=== PATIENT | male | born 1985 | race Caucasian/White ===

== ENCOUNTER 2023-08-22 15:42 | Inpatient (IN) ==
--- NOTE | 2023-08-22 16:04 | ED Triage Note ---
Date of Service August 22, 2023 Provider in Triage Author: Chey Doyle History of Present Illness This patient was briefly evaluated while in triage. An abbreviated physical exam was performed. This patient is a 37-year-old Male who presents to the ED for evaluation of swelling and edema, cellulitis after a testosterone injection. He reports the pain is located to the left thigh where he performed an intramuscular injection. Physical Exam Initial orders for labs and / or imaging were placed and patient was placed in the waiting area until a bed is available. Please see further documentation for the full ED course. MDM / Impression Impression Impression: Cellulitis of left leg, Hematoma of leg
--- NOTE | 2023-08-22 17:03 | Emergency Department Note ---
History of Present Illness General Chief complaint: Swelling/Edema to Extremity Stated complaint: INJECTION LT THIGH, INJECTION SIGHT SWELLING/PAIN Time Seen by Provider: 08/22/23 16:49 History of Present Illness This is a 37-year-old male that presents to the emergency department via private vehicle with complaints of "injection left thigh, swelling/pain". The patient states this past he injected about 500 mg of testosterone into his left anterior thigh region. He has done this before and has had no issues over the past 4 months. He notes that since there has been a bit more discomfort at the injection site and Tuesday noticed more irritation. Then yesterday he did a cardio type workout and now today notes a lot of swelling and redness to the left anterior leg. He was were about infection therefore prompting arrival here today. Patient notes that he cleansed the injection site with rubbing alcohol prior to the injection. It is with clean needles. He notes that he has had the exact same testosterone before without issue. No hives. No trouble breathing or swallowing. Patient denies any pertinent past medical history. He notes history of boxer fracture surgery on his hand. He notes allergy to triple antibiotic ointment. No chest pain or shortness of breath. No fevers or chills. No current antibiotic use. Home Medications Medication Instructions Recorded Confirmed Type No Known Home Medications 08/22/23 08/22/23 History Allergies Allergy/AdvReac Type Severity Reaction Status Date / Time No Known Allergies Allergy Unknown UNKNOWN Unverified 08/22/23 16:40 Past Med/Surg History Medical History (Updated 08/22/23 @ 19:53 by TOM Powell) Tobacco use Diaphoresis Surgical History (Updated 08/22/23 @ 19:08 by TOM Powell) No pertinent past surgical history Social History (Updated 08/22/23 @ 19:08 by TOM Powell) Smoking Status: Never smoker Tobacco Type: E-cigarettes / Vaping Second Hand Exposure: No; Do You Dip or Chew Tobacco: No; Tobacco Cessation Education Requested by Patient: No Hx Alcohol Use: Yes Alcohol type: beer Hx Substance Use: No Preferred Language: Chinese Communication Ability: Effective Clock Mechanic Required: No Beliefs That Will Affect Care: None Current Living Situation: Alone and Spouse Other Information That Helps Us Care for You: No Feels Safe at Home: Yes Safety Concerns: Feels Safe At This Time Assistive Devices: None Review of Systems A total of 10 systems reviewed and were otherwise negative Physical Exam Vital Signs Vital Signs - 24 hr 08/22/23 16:01 Temperature 36.8 C Temperature Source Oral Pulse Rate 105 H Respiratory Rate 16 Respiratory Effort / Characteristics Non-Labored Respiratory Depth Normal Respiratory Pattern Regular Blood Pressure 183/94 H Blood Pressure Mean 123 Pulse Oximetry 97 Oxygen Delivery Method Room Air Sepsis Recent Fever Within 48 Hours No Sepsis New/Unexplained Change in Mental Status No Sepsis Action Taken by Nursing No Action Required VITAL SIGNS - Vital signs and nursing notes were reviewed. Hypertensive, tachycardic, otherwise stable. GENERAL -37-year-old male appearing his stated age who is in no acute distress. Communicates well with provider and answers questions appropriately. SKIN -there is a rather large area of diffuse erythema to the left anterior thigh that is outlined by a skin marking pen. There is a small amount of induration palpable to the central mid aspect with the patient notes the injection was placed. No crepitus. No fluctuance. HEAD - NC/AT. EYES - PERRL with EOMI bilaterally. Sclera anicteric. EARS - No deformities of external structures noted on gross examination bilaterally. NOSE - Midline and without cyanosis. MOUTH/OROPHARYNX - Without perioral cyanosis. NECK - Neck with FROM. No nuchal rigidity. LUNGS - Chest wall symmetric without accessory muscle use, intercostals retractions, or central cyanosis. Normal vesicular breath sounds CTA B/L. No wheezes, rales, or rhonchi appreciated. CARDIAC - RRR with S1/S2. No murmur, rubs, or gallops appreciated. EXTREMITIES - No clubbing or peripheral cyanosis. Mild TTP over the left anterior thigh. Skin as above. Left lower extremity appropriately perfused +5/5 strength noted in UE/LE bilaterally. NEUROLOGIC - Cranial nerves II through XII grossly intact. PSYCH - A&Ox3 and cooperates fully with examiner. Pt is very pleasant and interacts well with examiner. Course Administered Medications Discontinued Medications Cefepime HCl (Maxipime) 2,000 mg in 20 mls @ 5 mls/min IV NOW STA; Protocol Stop: 08/22/23 18:13 Last Admin: 08/22/23 19:37 Dose: 5 mls/min Documented By: DEBBI Vancomycin HCl 2,000 mg/ (Sodium Chloride) 540 mls @ 200 mls/hr IV NOW ONE Stop: 08/22/23 20:51 Last Infusion: 08/22/23 22:42 Dose: Infused Documented By: Admin: 08/22/23 19:39 Dose: 200 mls/hr Documented By: DEBBI Lorazepam (Lorazepam 0.5 Mg Tab) 0.5 mg PO NOW STA Stop: 08/22/23 23:04 Last Admin: 08/22/23 23:21 Dose: 0.5 mg Documented By: CARTER Medical Decision Making Laboratory Data 08/22/23 17:17 08/22/23 17:17 Lab Results 08/22/23 Range/Units 17:17 WBC 11.27 H (4.8-10.8) K/ul RBC 5.36 (4.70-6.10) M/uL Hgb 15.7 (14.0-18.0) g/dl Hct 46.6 (42.0-52.0) % MCV 86.9 (80.0-100.0) fL MCH 29.3 (25.0-34.0) pg MCHC 33.7 (32.0-36.0) g/dL RDW Std Deviation 44.4 (36.4-46.3) fL RDW Coeff of Samantha 13.7 (11.5-14.5) % Plt Count 270 (130-400) K/uL MPV 10.8 (9.4-12.4) fL Immature Gran % (Auto) 0.4 % Neut % (Auto) 78.2 % Lymph % (Auto) 11.6 % Walsh % (Auto) 7.1 % Eos % (Auto) 2.4 % Baso % (Auto) 0.3 % Neut # (Auto) 8.82 H (1.40-6.50) K/uL Lymph # (Auto) 1.31 (1.20-3.40) K/uL Walsh # (Auto) 0.80 H (0.11-0.59) K/uL Eos # (Auto) 0.27 (0.00-0.50) K/uL Baso # (Auto) 0.03 (0.00-0.20) K/uL Immature Gran # (Auto) 0.04 (0.01-0.20) K/uL PT 10.9 (9.0-12.0) Seconds INR 1.0 (0.9-1.1) APTT 31 (21-31) Seconds PTT Ratio 1.1 Sodium 135 L (136-145) mmol/L Potassium 3.5 (3.5-5.1) mmol/L Chloride 98 (98-107) mmol/L Carbon Dioxide 26 (21-32) mmol/L Anion Gap 11 (3-11) BUN 13 (6-23) mg/dl Creatinine 1.17 (0.6-1.4) mg/dl Est Cr Clr Drug Dosing 98.8 ml/min Est GFR ( Amer) 91.8 ml/min Est GFR (Non-Af Amer) 79.2 ml/min BUN/Creatinine Ratio 11.1 (10-20) Glucose 80 (70-99(Fasting)) mg/dl Lactate 0.9 (0.4-2.0) mmol/L Calcium 9.2 (8.6-10.3) mg/dl Total Bilirubin 0.6 (0.2-1.0) mg/dl AST 20 (13-39) U/L ALT 16 (7-52) U/L Alkaline Phosphatase 37 (34-104) U/L Total Protein 7.7 (6.0-8.3) gm/dl Albumin 4.5 (3.4-5.0) gm/dl Globulin 3.2 (2.5-4.0) gm/dl Albumin/Globulin Ratio 1.4 (0.9-2) Procalcitonin 0.33 (0-0.5) ng/ml Imaging Data Radiologist's Impression: Vascular Ultrasound 08/22/23 16:59 US extremity non-vascular ltd CLINICAL HISTORY: L anterior leg erythema, edema, at injection site TECHNIQUE: Real-time grayscale sonographic images of the left upper anterior thigh were obtained. Comparison: None available at the time of this dictation. FINDINGS/IMPRESSION: Localized complex area at the point of interest measures 5.8 x 1.0 x 2.5 cm, nonspecific but may represent a developing phlegmon versus hematoma. No drainable fluid collection. ACT 112: Negative or not required by law. Electronically signed by: Josue Tello M.D. 08/22/2023 5:55 PM MDM Narrative Patient was seen and evaluated as above in room D01. Review was performed of nursing notes and vital signs. After obtaining a thorough history and physical examination the above work up was performed. Patient presents to us today for evaluation of erythema to the left anterior thigh region. This is in the setting of injecting testosterone at the area this past . There is what is likely a hematoma at the site of the injection that is deep to the skin surface now with surrounding erythema. There is no fluctuance or crepitus. Options of care were discussed with the patient. IV access was established. Labs were drawn. Leukocytosis 11.27. No anemia. Coags are normal. Mild hyponatremia 135. No evidence of kidney or liver failure. Lactate is within normal range. Procalcitonin 0.33. Ultrasound results as above. There is a localized complex area at the point of interest measuring 5.8 x 1.0 x 2.5 cm. Nonspecific may represent a developing phlegmon versus hematoma. No drainable fluid collection. Clinically I suspect hematoma however and developing infectious process certainly is possible. I suspect overlying cellulitic change. Broad-spectrum antibiotics ordered. IV cefepime and IV vancomycin ordered. Given the size of this cellulitic infection I do recommend inpatient management for IV antibiotics. Case discussed with the hospitalist service. Please refer to further documentation regarding his stay. Patient amenable to plan of care. Case was discussed with the attending physician. GCS: 15 In the evaluation and treatment of this patient the following differential diagnoses were entertained: Cellulitis, abscess, necrotic tissue, retained foreign body, hematoma, among others Impression & Plan Cellulitis of left leg, Hematoma of leg Discharge Plan Visit Data Chief Complaint: Swelling/Edema to Extremity Stated Complaint: INJECTION LT THIGH, INJECTION SIGHT SWELLING/PAIN ED Provider: January Hart ED Midlevel Provider: Lul Dennis Discharge Problem: Cellulitis of left leg, Hematoma of leg Patient Disposition: Admitted As Inpatient Condition: Good Discharge Instructions Interventions: ED Discharge Assessment Last Done: 08/22/23 21:40
[2023-08-22 17:39] LABS: Basophils # (auto) 0.03 K/uL (0.00-0.20); Basophils % (auto) 0.3 %; Eosinophils # (auto) 0.27 K/uL (0.00-0.50); Eosinophils % (auto) 2.4 %; Hematocrit (blood only) 46.6 % (42.0-52.0); Hemoglobin 15.7 g/dl (14.0-18.0); Immature Granulocytes # (auto) 0.04 K/uL (0.01-0.20); Immature Granulocytes % (auto) 0.4 %; Lymphocytes # (auto) 1.31 K/uL (1.20-3.40); Lymphocytes % (auto) 11.6 %; Mean Corpuscular Hemoglobin 29.3 pg (25.0-34.0); Mean Corpuscular Hgb Conc 33.7 g/dL (32.0-36.0); Mean Corpuscular Volume 86.9 fL (80.0-100.0); Mean Platelet Volume 10.8 fL (9.4-12.4); Monocytes % (auto) 7.1 %; Neutrophils # (auto) 8.82 K/uL (1.40-6.50); Neutrophils % (auto) 78.2 %; Platelet Count 270 K/uL (130-400); RDW Coefficient of Variation 13.7 % (11.5-14.5); RDW Standard Deviation 44.4 fL (36.4-46.3); Red Blood Count 5.36 M/uL (4.70-6.10); White Blood Count 11.27 K/ul (4.8-10.8)
[2023-08-22 17:55] LABS: Albumin Globulin Ratio 1.4 (0.9-2); Albumin Level 4.5 gm/dl (3.4-5.0); BUN Creatinine Ratio 11.1 (10-20); Bilirubin,Total 0.6 mg/dl (0.2-1.0); Calcium 9.2 mg/dl (8.6-10.3); Creatinine Clr Calc Pharmacy 98.8 ml/min; Est GFR (African American) 91.8 ml/min; Est GFR (Non-African American) 79.2 ml/min; Globulin 3.2 gm/dl (2.5-4.0); Potassium 3.5 mmol/L (3.5-5.1); Total Protein 7.7 gm/dl (6.0-8.3)
--- NOTE | 2023-08-22 17:57 | Ultrasound Report ---
US extremity non-vascular ltd CLINICAL HISTORY: L anterior leg erythema, edema, at injection site TECHNIQUE: Real-time grayscale sonographic images of the left upper anterior thigh were obtained. Comparison: None available at the time of this dictation. FINDINGS/IMPRESSION: Localized complex area at the point of interest measures 5.8 x 1.0 x 2.5 cm, non specific but may represent a developing phlegmon versus hematoma. No drainable fluid collection. ACT 112: Negative or not required by law. Electronically signed by: Josue Tello M.D. 08/22/2023 5:55 PM
[2023-08-22 18:05] LABS: Partial Thromboplastin Ratio 1.1; Partial Thromboplastin Time 31 Seconds (21-31); Prothrombin Time 10.9 Seconds (9.0-12.0)
[2023-08-22] MEDS ORDERED: VANCOMYCIN CONSULT ACTIVE PRN ×2 (18:10→19:29)
[2023-08-22] MEDS ORDERED: MAGNESIUM HYDROXIDE SUSP 30 ML UDC PO PRN (19:01)
[2023-08-22] MEDS ORDERED: POLYETHYLENE (MIRALAX) 17 GM PACK PO PRN (19:01)
[2023-08-22] MEDS ORDERED: ACETAMINOPHEN 325 MG TAB PO PRN (19:01)
[2023-08-22] MEDS ORDERED: ALUMINUM/MAGNESIUM SUSP 30 ML UDC PO PRN (19:01)
[2023-08-22] MEDS ORDERED: ONDANSETRON INJ 2 MG/ML 2 ML VIAL IV PRN (19:01)
--- NOTE | 2023-08-22 19:03 | History & Physical Report ---
Date of Service August 22, 2023 Assessment & Plan (1) Hematoma of leg: (2) Cellulitis of left leg: (3) Tobacco use: Plan Mr. Gutierrez is a 37-year-old male who presented to the ED with swelling and pain on his left thigh. Patient states that this past he injected testosterone into his left anterior thigh. This is not the first time that he has used testosterone and is leg and reports no issues prior when he started using testosterone about 4 months ago. Since he noted increased discomfort at his injection site with worsening irritation since Tuesday. Yesterday he exercised and today reports worsening of his symptoms. He reportedly uses a new needle each time he injects and also cleans the site well. No other past medical history noted. Patient reportedly takes glycopyrrolate as needed for diaphoresis related to exercise. Mild leukocytosis 11.27; lactate negative LFTs negative, procalcitonin negative and otherwise all drawn labs unremarkable. Patient initially was hypertensive but has normalized. On room air and otherwise hemodynamically stable. Vascular Ultrasound indicates 5.8 X1.0X 2.5 cm questionable phlegmon versus hematoma without drainable fluid. In the ED patient was placed on cefepime plus vancomycin. Admit for treatment of left anterior thigh hematoma with IV antibiotics given mild leukocytosis. Will adjust based on blood culture results and MRSA screen. Cellulitis of left anterior thigh: Hematoma of left anterior thigh: Acute Leukocytosis 11.27 Lactate negative, procalcitonin negative Vascular ultrasound: Localized complex area at the point of interest measures 5.8 x 1.0 x 2.5 cm, nonspecific but may represent a developing phlegmon versus hematoma. No drainable fluid collection Blood cultures and MRSA screen pending Cefepime plus vancomycin administered in ED; adjust based on blood culture results Discontinue vancomycin if negative MRSA screen Tobacco Use: Chronic Vapes Smoking cessation recommended Disposition: PCP: Beatrice Clark PA-C CODE STATUS: Full code VTE prophylaxis Lovenox subcu I spent a total of 87 minutes coordinating, documenting, and providing care for this patient excluding time spent in the performance of separately billed services. All of the aforementioned completed while collaborating with the assigned attending physician for a full treatment plan. Please see their addendum for further details. History of Present Illness Chief Complaint: R thigh hematoma Primary Care Provider: Beatrice Clark PA-C Mr. Gutierrez is a 37-year-old male who presented to the ED with swelling and pain on his left thigh. Patient states that this past he injected testosterone into his left anterior thigh. This is not the first time that he has used testosterone and is leg and reports no issues prior when he started using testosterone about 4 months ago. Since he noted increased discomfort at his injection site with worsening irritation since Tuesday. Yesterday he exercised and today reports worsening of his symptoms. He reportedly uses a new needle each time he injects and also cleans the site well. No other past medical history noted. Patient reportedly takes glycopyrrolate as needed for diaphoresis related to exercise. Extensive conversation held with patient indicating the negatives regarding nonprescribed medications and concerns regarding such. Mild leukocytosis 11.27; lactate negative LFTs negative, procalcitonin negative and otherwise all drawn labs unremarkable. Patient initially was hypertensive but has normalized. On room air and otherwise hemodynamically stable. Vascular Ultrasound indicates 5.8 X1.0X 2.5 cm questionable phlegmon versus hematoma without drainable fluid. In the ED patient was placed on cefepime plus vancomycin. Patient reportedly vapes, social alcohol with approximately 1 drink per week, no other recreational drug use including medical marijuana. Patient denies headache, dizziness, chest pain, palpitations, shortness of breath, abdominal pain or tenderness, visual or auditory changes, urinary or bow el changes, recent falls or trauma. Patient will be admitted for treatment of left anterior thigh hematoma with IV antibiotics given mild leukocytosis. Will adjust based on blood culture results and MRSA screen. Do not suspect admission more than 1 to 2 days. Please see A/P for further details. Allergies Allergy/AdvReac Type Severity Reaction Status Date / Time No Known Allergies Allergy Unknown UNKNOWN Unverified 08/22/23 16:40 Home Medications Medication Instructions Recorded Confirmed Type No Known Home Medications 08/22/23 08/22/23 History Past Med/Surg History Medical History (Updated 08/22/23 @ 19:08 by TOM Powell) Tobacco use Diaphoresis Surgical History (Updated 08/22/23 @ 19:08 by TOM Powell) No pertinent past surgical history Social History (Updated 08/22/23 @ 19:08 by TOM Powell) Smoking Status: Current every day smoker Tobacco Type: E-cigarettes / Vaping Second Hand Exposure: No; Do You Dip or Chew Tobacco: No; Tobacco Cessation Education Requested by Patient: No Hx Alcohol Use: No Hx Substance Use: No Preferred Language: Danish Feels Safe at Home: Yes Review of Systems Review of Systems: Neuro: (-) Falls, trauma, slurred speech HEENT: (-) MILLS, dizziness, dysphagia, visual or auditory changes CV: (-) CP, palpitations, swelling Resp: (-) SOB GI: (-) appetite changes, N/V/D, bowel changes : (-) urinary changes Skin: (-) rashes Psych: (-) anxiety, depression Physical Exam Physical Exam: Neuro: AAOx4, PERRLA, no aphagia, memory changes, CNII-XII grossly intact HEENT: head normocephalic, moist mucus membranes CV: S1/S2, (-) M/G/R, (-) edema, cap refill < 3 seconds Resp: Lungs CTA in all duenas. On RA GI: Abdomen S/NT/ND, Ax4 bowel sounds, (-) CVA tenderness Musculoskeletal: 5/5 B/L UE strength, 5/5 B/L LE strength. No gait disturbance Skin: (-) rashes , (+) L anterior thigh diffuse erythema Small amount of induration noted anterior aspect of L thigh Psych: euthymic mood Results & Data Results & Data Vital Signs (Past 12 Hours) Vital Signs Temp Pulse Resp BP Pulse Ox O2 Del Method 08/22/23 16:01 36.8 C 105 H 16 183/94 H 97 Room Air Laboratory Results Short CBC 08/22/23 Range/Units 17:17 WBC 11.27 H (4.8-10.8) K/ul Hgb 15.7 (14.0-18.0) g/dl Hct 46.6 (42.0-52.0) % Plt Count 270 (130-400) K/uL BMP 08/22/23 17:17 Sodium 135 L Potassium 3.5 Chloride 98 Carbon Dioxide 26 BUN 13 Creatinine 1.17 Glucose 80 Calcium 9.2 Liver Function 08/22/23 Range/Units 17:17 Total Bilirubin 0.6 (0.2-1.0) mg/dl AST 20 (13-39) U/L ALT 16 (7-52) U/L Alkaline Phosphatase 37 (34-104) U/L Albumin 4.5 (3.4-5.0) gm/dl Diagnostic Findings Vascular Ultrasound 08/22/23 16:59 US extremity non-vascular ltd CLINICAL HISTORY: L anterior leg erythema, edema, at injection site TECHNIQUE: Real-time grayscale sonographic images of the left upper anterior thigh were obtained. Comparison: None available at the time of this dictation. FINDINGS/IMPRESSION: Localized complex area at the point of interest measures 5.8 x 1.0 x 2.5 cm, nonspecific but may represent a developing phlegmon versus hematoma. No drainable fluid collection. ACT 112: Negative or not required by law. Electronically signed by: Josue Tello M.D. 08/22/2023 5:55 PM Code Status & VTE Plan Code Status Full but in the event of cardiac respiratory or VTE Prophylaxis Plan VTE Prophylaxis will be ordered: Yes Supervising Physician Co-Signing Physician Notes Attending addendum: The patient was seen and examined in emergency room He has been complaining of pain in the left thigh anteriorly with some swelling since Tuesday Denies any fever and or chills On examination Lying in bed comfortably Hemodynamically stable with blood pressure on the upper side at 183/94 Chest-clear to auscultate bilaterally Heart-S1-S2, regular Abdomen-benign Extremities-left thigh is swollen anteriorly with redness and warmth with tenderness involving the area marked. 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
[2023-08-22] MEDS ORDERED: VANCOMYCIN HCL 1,500 MG in SODIUM CHLORIDE 0.9% 500 ML IV SCH (19:30)
[2023-08-22] MEDS ORDERED: ENOXAPARIN INJ 40 MG/0.4 ML SYR SQ SCH (19:30)
[2023-08-22] MEDS: CEFEPIME 2,000 MG/20 ML VIAL IV STA (19:37)
[2023-08-22] MEDS: VANCOMYCIN HCL 2,000 MG in SODIUM CHLORIDE 0.9% 500 ML IV ONE (19:39)
--- NOTE | 2023-08-22 20:43 | Pharmacy Report ---
Pharmacy PK ABX Note - Date of Service August 22, 2023 - Assessment and Plan Assessment 37 year old M receiving vancomycin and cefepime for treatment of suspected left leg cellulitis. Pertinent microbiologic data includes: Cultures pending, mild leukocytosis upon admission. Day # 1 of antimicrobial therapy. Plan Vancomycin * Loading dose: 2000 mg IV x 1 * Maintenance dose: 1250 mg IV every 12 hours * Regimen is predicted to achieve target AUC/PENNY of 400-600 mg/L.hr * Level to be ordered for later date if therapy continued. Pharmacy will continue to follow and will adjust dose/frequency as necessary. Thank you. Pharmacy has transitioned to AUC monitoring for vancomycin. AUC/PENNY is the preferred PK/PD target and is associated with decreased risk of nephrotoxicity compared to traditional trough targets.
[2023-08-22] MEDS: LORazepam 0.5 MG TAB PO STA (23:21)
--- OUTSIDE RECORDS SUMMARY | 2023-08-23 06:06 | External Medical Summary ---
Author Name Unknown Address Unknown Organization K01:[facility] – [place], [place] - [address] [facility] [id number] Laboratory Report Ordering Provider Test Date Status DANIEL BANGURA 03/17/2023 09:25:58 Final Observation Date Value Abnormality Reference (Units ) Status MYCODE SPECIMEN-SST 03/17/2023 09:25:58 Freezing of extracted DNA, whole blood and/or serum. Final Performing Location [facility] – [place], [place] - [address] [facility] [id number]
--- OUTSIDE RECORDS SUMMARY | 2023-08-23 06:06 | External Medical Summary | Summary of Care ---
Author Name Unknown Organization [facility] Address [address] [place] [address] Phone [phone] Care Team Providers Care Combustion Engineer Name Role Phone Bert Bennett PA-C Primary Care Provider +1- [phone] Encounter Details Date Type Department Care Team Description 03/21/2023 Orders Only Outcomes Research Department [address] [place] [address] Lety Negrete CHRA MyCode Research Other*[id number] Allergies No known active allergiesdocumented as of this encounter (statuses as of 03/21/2023) Medications Medication Sig Dispensed Refills Start Date End Date Status Glycopyrrolate 2 MG Oral Tablet (Robinul) TAKE ONE TAB BY MOUTH UP TO THREE TIMES DAILY 90 Tablet 0 01/31/2023 Active documented as of this encounter (statuses as of 03/21/2023) Active Problems Problem Noted Date Hyperhidrosis 07/03/2018 documented as of this encounter (statuses as of 03/21/2023) Resolved Problems Problem Noted Date Resolved Date NONE 07/03/2018 documented as of this encounter (statuses as of 03/21/2023) Immunizations Name Administration Dates Next Due Seasonal Influenza, Split, IIV3, With Preserve, Inj 04/02/2013 TDAP (age 10 and older)(Boostrix) 12/09/2016 documented as of this encounter Social History Tobacco Use Types Packs/Day Years Used Date Smoking Tobacco: Former Cigars Smokeless Tobacco: Current Snuff Alcohol Use Standard Drinks/Week Comments Yes 0 (1 standard drink = 0.6 oz pur e alcohol) social Sex Assigned at Date Recorded Not on file Job Start Date Occupation Industry Not on file Not on file Not on file documented as of this encounter Plan of Treatment Upcoming Encounters Date Type Specialty Care Team Description 05/30/2023 Office Visit Family Medicine José Miguel Zaman MD [address] [place] [address] 03/19/2024 Office Visit Internal Medicine Bert Bennett PA-C [address] [place] [facility] [place] [address] Scheduled Orders Name Type Priority Associated Diagnoses Orde r Schedule MYCODE SUBSEQUENT ADULT Lab Routine MyCode Research Other*[id number] Every 6 Months for 2 Occurrences starting 03/21/2023 until 04/09/2024 Health Maintenance Due Date Last Done Comments COVID-19 Vaccine (#1) 04/02/1986 Hepatitis B (3 of 3 - 3-dose series) 10/14/2000 08/19/2000, 06/10/2000 Influenza Vaccine (FLU shot) (#1) 2023 04/02/2013, 04/22/2007 Depression Screening 03/17/2024 03/17/2023 Diabetes Screening 03/17/2026 03/17/2023, 0 12/05/2020, 04/24/2020, Additional history exists DTaP,Tdap,and Td Vaccines (7 - Td or Tdap) 12/09/2026 12/09/2016, 06/10/2000, 11/10/1988, Additional history exists Hepatitis C Screening Completed 12/21/2022 GARDASIL-HPV IMMUNIZATION SERIES Aged Out No longer eligible based on patient's age to complete this topic MENINGOCOCCAL (MENACTRA/MENVEO) Aged Out No longer eligible based on patient's age to complete this topic Pneumococcal Vaccine: Pediatrics (0 to 5 Years) and At-Risk Patients (6 to 64 Years) Aged Out No longer eligible based on patient's age to complete this topic documented as of this encounter Medical Devices Not on filedocumented as of this encounter Visit Diagnoses Diagnosis MyCode Research Other*[id number] documented in this encounter Advance Directives Latest Code Status on File Code Status Date Activated Date Inactivated Comments Full Code 12/09/2020 8:19 AM 12/09/2020 2:04 PM This or jake reflects the patients wishes and were consensually agreed upon. Code Status History Code Status Date Activated Date Inactivated Comments Full Code 12/09/2020 6:29 AM 12/09/2020 8:19 AM This or jake reflects the patients wishes and were consensually agreed upon. Care Teams Combustion Engineer Relationship Specialty Start Date End Date Bert Bennett PA-C [address] [facility] [place] [address] PCP - General Physician [employer]mv Driver 03/08/23 documented as of this encounter
--- OUTSIDE RECORDS SUMMARY | 2023-08-23 06:06 | External Medical Summary | Summary of Care ---
Author Name Unknown Organization [facility] Address [address] [place] [address] Phone [phone] Care Team Providers Care Glue Jointer Operator Name Role Phone Bert Bennett PA-C Primary Care Provider +1- [phone] Encounter Details Date Type Department Care Team Description 03/18/2023 Orders Only General Internal Medicine [facility] [address] [facility] [place] [place] [address] Bert Bennett PA-C [address] [place] [address] Long-term current use of testosterone replacement therapy* Allergies No known active allergiesdocumented as of this encounter (statuses as of 03/18/2023) Medications Medication Sig Dispensed Refills Start Date End Date Status Glycopyrrolate 2 MG Oral Tablet (Robinul) TAKE ONE TAB BY MOUTH UP TO THREE TIMES DAILY 90 Tablet 0 01/31/2023 Active documented as of this encounter (statuses as of 03/18/2023) Active Problems Problem Noted Date Hyperhidrosis 07/03/2018 documented as of this encounter (statuses as of 03/18/2023) Resolved Problems Problem Noted Date Resolved Date NONE 07/03/2018 documented as of this encounter (statuses as of 03/18/2023) Immunizations Name Administration Dates Next Due Seasonal [...] Family Medicine José Miguel Zaman MD [address] [place] [address] 03/19/2024 Office Visit Internal Medicine Bert Bennett PA-C [address] [facility] [place] [address] Scheduled Orders Name Type Priority Associated Diagnoses Orde r Schedule CBC Lab Routine Long-term current use of testosterone replacement therapy Expected: 09/16/2023 (Approximate), Expires: 03/17/2024 Health Maintenance Due Date Last Done Comments [...] as of this encounter Visit Diagnoses Diagnosis Long-term current use of testosterone replacement therapy- Primary documented in this encounter Advance Directives Latest [...] and were consensually agreed upon. Care Teams Glue Jointer Operator Relationship Specialty Start Date End Date Bert Bennett PA-C [address] [facility] [place] [address] PCP - General Physician Force Dispatcher 03/08/23 documented as of this encounter
--- OUTSIDE RECORDS SUMMARY | 2023-08-23 06:06 | External Medical Summary | Summary of Care ---
Author Name Unknown Organization [facility] Address [address] [place] [address] Phone [phone] Care Team Providers Care Mail Caller Name Role Phone Bert Bennett PA-C Primary Care Provider +1- [phone] Reason for Visit * Reason Comments NEW PATIENT Establish care with new PCP. No concerns or issues at this time. Encounter Details Date Type Department Care Team Description 03/17/2023 Office Visit General Internal Medicine [facility] [address] [place] [address] Bert Bennett PA-C [address] [place] [address] Hyperhidrosis*; Lipid screening; Screening for diabetes mellitus; Therapeutic drug monitoring Allergies No known active allergiesdocumented as of this encounter (statuses as of 03/17/2023) Medications Medication Sig Dispensed Refills Start Date End Date Status Glycopyrrolate 2 MG Oral Tablet (Robinul) TAKE ONE TAB BY MOUTH UP TO THREE TIMES DAILY 90 Tablet 0 01/31/2023 Active Meloxicam 15 MG Oral Tablet Take 1 Tab by mouth daily. 30 Tab 1 09/17/2020 03/17/2023 Discontinued Ondansetron HCl 4 MG Oral Tablet (Zofran) Take 1 Tab by mouth every 8 hours as needed for Nausea. 20 Tab 0 12/09/2020 03/17/2023 Discontinued Tamsulosin HCl 0.4 MG Oral Capsule (Flomax) Take 1 Cap by mouth daily. 30 Cap 0 12/09/2020 03/17/2023 Discontinued Ketorolac Tromethamine 10 MG Oral Tablet Take 10 mg by mouth every 6 hours as needed for Pain, Mild. 20 Tab 0 12/15/2020 03/17/2023 Discontinued documented as of this encounter (statuses as of 03/17/2023) Active Problems Problem Noted Date Hyperhidrosis 07/03/2018 documented as of this encounter (statuses as of 03/17/2023) Resolved Problems Problem Noted Date Resolved Date NONE 07/03/2018 documented as of this encounter (statuses as of 03/17/2023) Immunizations Name Administration Dates Next Due Seasonal [...] on file documented as of this encounter Last Filed Vital Signs Vital Sign Reading Time Taken Comments Blood Pressure 120/76 03/17/2023 9:05 AM EDT Pulse 83 03/17/2023 9:05 AM EDT Temperature 36.2 C (97.1 F) 03/17/2023 9:05 AM ED T Respiratory Rate - - Oxygen Saturation 99% 03/17/2023 9:05 AM EDT Inhaled Oxygen Concentration - - Weight 85 kg (187 lb 4.8 oz) 03/17/2023 9:05 AM EDT Height 174.6 cm (5' 8.74") 03/17/2023 9:05 AM ED T Body Mass Index 27.87 03/17/2023 9:05 AM EDT documented in this encounter Progress Notes * Bert Bennett PA-C - 03/17/2023 9:07 AM EDT Subjective: Jaison Gutierrez is a 37 year old male. Chief Complaint Patient presents with NEW PATIENT Establish care with new PCP. No concerns or issues at this time. HPI: 37 y/o male with hyperhidrosis presents to establish care with our office. Hs hyperhidrosis. Using robinul. Taking 75 mg of testosterone twice daily. Not prescribed. Discussed risk of TRT, especially in setting that it is not indicated. PMH: Patient Active Problem List Diagnosis Code Hyperhidrosis R61 Current Outpatient Medications Medication Sig Dispense Refill Glycopyrrolate 2 MG Oral Tablet (Robinul) TAKE ONE TAB BY MOUTH UP TO THREE TIMES DAILY 90 Tablet 0 No current facility-administered medications for this visit. Past Medical History: Diagnosis Date Hyperhidrosis Kidney stone Past Surgical History: Procedure Laterality Date CARPBN FX W/WOM EA BONE Right boxer fracture CIRCUMCISION W/CLAMP,DORSAL BLOCK, FRAGMENT KIDNEY STONE BY SHOCK WAVE Left 12/09/2020 LITHOTRIPSY EXTRACORPOREAL SHOCK WAVE performed by Mahin Marie MD at OR [facility] Review of patient's allergies indicates: No Known Allergies Family History Problem Relation Age of Onset Hypertension Father No Past Hx Mother No Past Hx Brother No Past Hx Brother Family Status Relation Status Fa (Not Specified) Mo (Not Specified) Bro (Not Specified) Bro (Not Specified) Social History Socioeconomic History Marital status: Single Spouse name: Not on file Number of children: 2 Years of education: 12 Highest education level: Not on file Occupational History 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 Tobacco Use Smoking status: Former Types: Cigars Smokeless tobacco: Current Types: Snuff Vaping Use Vaping Use: Every day Substances: Nicotine, Flavoring Devices: Disposable Substance and Sexual Activity Alcohol use: Yes Comment: social Drug use: No Sexual activity: Yes Partners: Female Other Topics Concern Not on file Social History Narrative Not on file Social Determinants of Health Financial Resource Strain: Not on file Food Insecurity: Not on file Transportation Needs: Not on file Physical Activity: Not on file Stress: Not on file Social Connections: Not on file Intimate Partner Violence: Not on file Housing Stability: Not on file All other review of systems reviewed and negative other than mentioned in HPI. Objective: BP 120/76 | Pulse 83 | Temp 36.2 C (97.1 F) | Ht 1.746 m (5' 8.74") | Wt 85 kg (187 lb 4.8 oz) | SpO2 99% | BMI 27.87 kg/m | BSA 2.03 m Physical Exam Constitutional: General: He is not in acute distress. Appearance: Normal appearance. He is normal weight. He is not ill-appearing or toxic-appearing. HENT: Head: Normocephalic and atraumatic. Right Ear: Tympanic membrane normal. Left Ear: Tympanic membrane normal. Mouth/Throat: Mouth: Mucous membranes are moist. Pharynx: Oropharynx is clear. No oropharyngeal exudate or posterior oropharyngeal erythema. Eyes: Extraocular Movements: Extraocular movements intact. Conjunctiva/sclera: Conjunctivae normal. Pupils: Pupils are equal, round, and reactive to light. Cardiovascular: Rate and Rhythm: Normal rate and regular rhythm. Heart sounds: Normal heart sounds. No murmur heard. No friction rub. No gallop. Pulmonary: Effort: Pulmonary effort is normal. Breath sounds: Normal breath sounds. No wheezing, rhonchi or rales. Abdominal: General: Bowel sounds are normal. There is no distension. Palpations: Abdomen is soft. There is no mass. Tenderness: There is no abdominal tenderness. There is no guarding or rebound. Musculoskeletal: General: Normal range of motion. Neurological: General: No focal deficit present. Mental Status: He is alert. Psychiatric: Mood and Affect: Mood normal. Thought Content: Thought content normal. ASSESSMENT: Hyperhidrosis (Primary) Continue Robinul Lipid screening - LIPID PANEL WITH DIRECT LDL IF TG IS HIGH; Future; Expected date: 03/17/2023 Screening for diabetes mellitus - GLUCOSE, FASTING PLASMA; Future; Expected date: 03/17/2023 Therapeutic drug monitoring - CBC WITH WBC DIFFERENTIAL; Future; Expected date: 03/17/2023 - TESTOSTERONE: TOTAL, FREE AND BIOAVAILABLE; Future; Expected date: 03/17/2023 Recommend checking above given his testosterone use. Follow Up: Return in about 1 year (around 03/17/2024), or if symptoms worsen or fail to improve. Bert Bennett PA-C documented in this encounter Nursing Notes * Emelina Madrigal LPN - 03/17/2023 9:03 AM EDT Chief Complaint Patient presents with NEW PATIENT Establish care with new PCP. No concerns or issues at this time. documented in this encounter Plan of Treatment Upcoming Encounters Date Type Specialty Care Team Description 05/30/2023 Office Visit Family Medicine José Miguel Zaman MD [address] [place] [address] 03/19/2024 Office Visit Internal Medicine Bert Bennett PA-C [address] [place] [address] Pending Results Name Type Priority Associated Diagnoses Date /Time CBC WITH WBC DIFFERENTIAL Lab Routine Therapeutic drug monitoring 03/17/2023 9:25 AM EDT TESTOSTERONE: TOTAL, FREE AND BIOAVAILABLE Lab Routine Therapeutic drug monitoring 03/17/2023 9:25 AM EDT LIPID PANEL WITH DIRECT LDL IF TG IS HIGH Lab Routine Lipid screening 03/17/2023 9:25 AM EDT GLUCOSE, FASTING PLASMA Lab Routine Screening for diabetes mellitus 03/17/2023 9:25 AM EDT Scheduled Orders Name Type Priority Associated Diagnoses Orde r Schedule CBC WITH WBC DIFFERENTIAL Lab Routine Therapeutic drug monitoring Expected: 03/17/2023 (Approximate), Expires: 03/17/2024 TESTOSTERONE: TOTAL, FREE AND BIOAVAILABLE Lab Routine Therapeutic drug monitoring Expected: 03/17/2023 (Approximate), Expires: 03/16/2024 LIPID PANEL WITH DIRECT LDL IF TG IS HIGH Lab Routine Lipid screening Expected: 03/17/2023, Expires: 03/17/2024 GLUCOSE, FASTING PLASMA Lab Routine Screening for diabetes mellitus Expected: 03/17/2023 (Approximate), Expires: 03/16/2024 Health Maintenance Due Date Last Done Comments COVID-19 Vaccine (#1) 04/02/1986 Hepatitis B (3 of 3 - 3-dose series) 10/14/2000 08/19/2000, 06/10/2000 Depression Screening 07/03/2019 07/03/2018 Influenza Vaccine (FLU shot) (#1) 2023 04/02/2013, 04/22/2007 Diabetes Screening 12/06/2023 12/05/2020, 1 , 02/01/2013 DTaP,Tdap,and Td Vaccines (7 - Td or [...] as of this encounter Visit Diagnoses Diagnosis Hyperhidrosis- Primary Primary focal hyperhidrosis Lipid screening Screening for lipoid disorders Screening for diabetes mellitus Therapeutic drug monitoring Encounter for therapeutic drug monitoring documented in this encounter Advance Directives Latest Code Status on File Code Status Date Activated Date Inactivated Comments Full Code 12/09/2020 8:19 AM 12/09/2020 2:04 PM This or jake reflects the patients wishes and were consensually agreed upon. Code Status History Code Status Date Activated Date Inactivated Comments Full Code 12/09/2020 6:29 AM 12/09/2020 8:19 AM This or jaek reflects the patients wishes and were consensually agreed upon. Care Teams Mail Caller Relationship Specialty Start Date End Date Bert Bennett PA-C [address] [facility] [place] [address] PCP - General Physician Aviation [employer] 03/08/23 documented as of this encounter
--- OUTSIDE RECORDS SUMMARY | 2023-08-23 06:06 | External Medical Summary | Summary of Care ---
Author Name Unknown Organization [facility] Address [address] [place] [address] Phone [phone] Care Team Providers Care Medical Scientific Officer Name Role Phone Bert Bennett PA-C Primary Care Provider +1- [phone] Reason for Visit * Reason Comments Outpatient Testing Encounter Details Date Type Department Care Team Description 03/17/2023 Laboratory Laboratory [facility] [address] [place] [address] [facility] [address] [facility] [place] [address] [facility] Other*[id number]; Therapeutic drug monitoring; Lipid screening; Screening for diabetes mellitus Allergies No known active allergiesdocumented as of [...] Family Medicine José Miguel Zaman MD [address] [place] [address] 03/19/2024 Office Visit Internal Medicine Bert Bennett PA-C [address] [facility] [address] Pending Results Name Type Priority Associated Diagnoses Date /Time MYCODE INITIAL ADULT Lab Routine MyCode Research Other*[id number] 03/17/2023 9:25 AM EDT CBC WITH WBC DIFFERENTIAL Lab Routine Therapeutic drug monitoring 03/17/2023 9:25 AM EDT TESTOSTERONE: TOTAL, FREE AND BIOAVAILABLE Lab Routine Therapeutic drug monitoring 03/17/2023 9:25 AM EDT LIPID PANEL WITH DIRECT LDL IF TG IS HIGH Lab Routine Lipid screening 03/17/2023 9:25 AM EDT GLUCOSE, FASTING PLASMA Lab Routine Screening for diabetes mellitus 03/17/2023 9:25 AM EDT MYCODE INITIAL ADULT-PINK Lab Routine MyCode Research Other*[id number] 03/17/2023 9:25 AM EDT MYCODE SST1 Lab Routine MyCode Research Other*[id number] 03/17/2023 9:25 AM EDT MYCODE SST2 Lab Routine MyCode Research Other*[id number] 03/17/2023 9:25 AM EDT CBC Lab Routine Therapeutic drug monitoring 03/17/2023 9:25 AM EDT DIFFERENTIAL, AUTOMATED Lab Routine Therapeutic drug monitoring 03/17/2023 9:25 AM EDT Health Maintenance Due Date Last Done Comments [...] this encounter Visit Diagnoses Diagnosis MyCode Research Other*[id number] Therapeutic drug monitoring Encounter for therapeutic drug monitoring Lipid screening Screening for lipoid disorders Screening for diabetes mellitus documented in this encounter Advance Directives Latest [...] and were consensually agreed upon. Care Teams Medical Scientific Officer Relationship Specialty Start Date End Date Bert Bennett PA-C [address] [facility] [place], [place] [address] PCP - General Physician Sat Instructor 03/08/23 documented as of this encounter
--- OUTSIDE RECORDS SUMMARY | 2023-08-23 06:07 | External Medical Summary ---
Author Name Unknown Address Unknown Organization [id number][place] [place] [facility] [place] [address] Laboratory Report Ordering Provider Test Date Status TRENT JENKINS 03/17/2023 09:25:58 Final Observation Date Value Abnormality Reference (Units ) Status Albumin 03/17/2023 09:25:58 4.8 3.8-5.0 (g/dL) Final Sex Hormone Binding Globulin 03/17/2023 09:25:58 29 12-91 (nmol/L) Final Testosterone [Mass/volume] in Serum or Plasma 03/17/2023 09:25:58 874.4 Above high normal 249.0-836.0 (ng/dL) Final Free Testosterone, calculated 03/17/2023 09:25:58 203.0 Above high normal 35.0-130.0 (pg/mL) Final Bioavailable Testosterone, calculated 03/17/2023 09:25:58 528.7 Above high normal 79.0-335.0 (ng/dL) Final Performing Location [facility] [place] [facility] [place] [address]
--- OUTSIDE RECORDS SUMMARY | 2023-08-23 06:07 | External Medical Summary ---
Author Name Unknown Address Unknown Organization [id number][place] [place] [address] [facility] [address] Laboratory Report Ordering Provider Test Date Status TRENT JENKINS 03/17/2023 09:25:58 Final Observation Date Value Abnormality Reference (Units ) Status Triglyceride 03/17/2023 09:25:58 74 <=174 ( mg/dL) Final Triglyceride Reference Range s (mg/dL):
<150 Acceptable
150-174 Borderline high
175-499 High
>=500 Very high Cholesterol 03/17/2023 09:25:58 207 Above high normal <200 (mg/dL) Final Total Cholesterol Reference Ranges (mg/dL):
<200 Desirable
200-239 Borderline high
>=240 High HDL 03/17/2023 09:25:58 65 >39 (mg/dL ) Final HDL Cholesterol Reference Ra nges (mg/dL):
>=60 High (Desirable)
<50 Low (Undesirable) For Females
<40 Low (Undesirable) For Males NON-HDL CHOLESTEROL 03/17/2023 09:25:58 142 <=159 (mg/dL) Final Non-HDL Cholesterol Referenc e Range (mg/dL):
<100 Target level for high risk ASCVD patient
<130 Optimal for general population
130-159 Near optimal for general population
160-189 Borderline High
190-219 High
>=220 Very High LDL, (calculated) 03/17/2023 09:25:58 127 <= 129 (mg/dL) Final LDL Cholesterol Reference Ra nges (mg/dL):
<70 Target level for high risk ASCVD patient
<100 Optimal for general population
100-129 Near optimal for general population
130-159 Borderline high
160-189 High
>=190 Very high Performing Location [facility] [facility] [place] [address] [place] [address]
--- OUTSIDE RECORDS SUMMARY | 2023-08-23 06:07 | External Medical Summary | Summary of Care ---
Author Name Unknown Organization [facility] Address [address] [place] [address] Phone [phone] Care Team Providers Care Change Room Attendant Name Role Phone Bert Bennett PA-C Primary Care Provider [phone] Reason for Visit * Reason Comments eRx-Medication Refill Encounter Details Date Type Department Care Team Description 02/27/[address] [id number] José Miguel Brewster MD [address] [place] [phone] Allergies No known active allergiesdocumented as of this encounter (statuses as of 03/08/2023) Medications Medication Sig Dispensed Refills Start Date End Date Status Meloxicam 15 MG Oral Tablet Take 1 Tab by mouth daily. 30 Tab 1 09/17/2020 Active Ondansetron HCl 4 MG Oral Tablet (Zofran) Take 1 Tab by mouth every 8 hours as needed for Nausea. 20 Tab 0 12/09/2020 Active Tamsulosin HCl 0.4 MG Oral Capsule (Flomax) Take 1 Cap by mouth daily. 30 Cap 0 12/09/2020 Active Ketorolac Tromethamine 10 MG Oral Tablet Take 10 mg by mouth every 6 hours as needed for Pain, Mild. 20 Tab 0 12/15/2020 Active Glycopyrrolate 2 MG Oral Tablet (Robinul) TAKE ONE TAB BY MOUTH UP TO THREE TIMES DAILY 90 Tablet 0 01/31/2023 Active documented as of this encounter (statuses as of 03/08/2023) Active Problems Problem Noted Date Hyperhidrosis 07/03/2018 documented as of this encounter (statuses as of 03/08/2023) Resolved Problems Problem Noted Date Resolved Date NONE 07/03/2018 documented as of this encounter (statuses as of 03/08/2023) Immunizations Name Administration Dates Next Due Seasonal Influenza, Split, IIV3, With Preserve, Inj 04/02/2013 TDAP (age 10 and older)(Boostrix) 12/09/2016 documented as of this encounter Social History Tobacco Use Types Packs/Day Years Used Date Smoking Tobacco: Former Cigars Smokeless Tobacco: Current Snuff Alcohol Use Standard Drinks/Week Comments Not Currently 0 (1 standard drink = 0.6 oz pur e alcohol) Sex Assigned at Date Recorded Not on file Job Start Date Occupation Industry Not on file Not on file Not on file documented as of this encounter Miscellaneous Notes * Telephone Encounter - Mitzi Valdez - 03/08/2023 8:57 AM EDT Patient returned call and scheduled with provider in his new location. Updated PCP * Telephone Encounter - Kandis Marie - 03/01/2023 5:52 PM EDT Called pt can't lmom asking for mail box number * Telephone Encounter - Carolina Moe LPN - 03/01/2023 5:43 PM EDT Please call patient and help schedule an appt. We are unable to refill any meds at this time since he has not been seen since 2019. * Telephone Encounter - José Miguel Brewster MD - 03/01/2023 4:09 PM EDTRefused Prescriptions: Disp Refills Glycopyrrolate 2 MG Oral Tablet (Robinul) 90 Tab*3 Sig: TAKE 1 TABLET BY MOUTH UP TO 3 TIMES DAILY Refused By: JOSÉ MIGUEL BREWSTER Reason for Refusal: Other (comment below) * Telephone Encounter - José Miguel Brewster MD - 03/01/2023 4:09 PM EDT Patient not seen since 2019 He needs to be seen for med review Please call in the prescription to patients pharmacy and close encounter. Refused Prescriptions: Disp Refills Glycopyrrolate 2 MG Oral Tablet (Robinul) 90 Tab*3 Sig: TAKE 1 TABLET BY MOUTH UP TO 3 TIMES DAILY Refused By: JOSÉ MIGUEL BREWSTER Reason for Refusal: Other (comment below) * Telephone Encounter - Aurelio Trejo [facility] - 02/28/2023 11:23 AM EDT Telepharmacy not authorized to fill for this medication per protocol. Please approve if appropriate. Pending Prescriptions: Disp Refills Glycopyrrolate 2 MG Oral Tablet (Robinul) 90 Tab*3 Sig: TAKE 1 TABLET BY MOUTH UP TO 3 TIMES DAILY Visit date not found (in office), Visit date not found (telemedicine) 05/30/2023 If no future appointments scheduled, and last appointment is greater than a year ago, please schedule patient for a follow-up appointment Last date the medication was ordered: Pharmacy: [id number] Is this request for a controlled substance? No Urine Drug Screen:No results found for this or any previous visit. Patient Phone Numbers Labs: Lab Results Component Value Date/Time CREAT 1.2 12/05/2020 02:01 PM CREAT 1.2 04/24/2020 08:20 AM POTASSIUM 4.4 12/05/2020 02:01 PM POTASSIUM 5.0 04/24/2020 08:20 AM TSH 0.88 02/01/2013 01:00 PM ALT 22 04/24/2020 08:20 AM * Telephone Encounter - Aurelio Trejo RP - 02/28/2023 11:23 AM EDT Pending Prescriptions: Disp Refills Glycopyrrolate 2 MG Oral Tablet (Robinul) 90 Tab*3 Sig: TAKE 1 TABLET BY MOUTH UP TO 3 TIMES DAILY documented in this encounter Plan of Treatment Upcoming Encounters Date Type Specialty Care Team Description 03/17/2023 Office Visit Internal Medicine Bert Bennett PA-C [address] [place] [phone] 05/30/2023 Office Visit Family Medicine José Miguel Brewster MD [address] [place] [phone] Health Maintenance Due Date Last Done Comments COVID-19 Vaccine (#1) 04/02/1986 Hepatitis B (3 of 3 - 3-dose series) 10/14/2000 08/19/2000, 06/10/2000 Depression Screening, Annual for Pts 12 and Over 07/03/2019 07/03/2018 Influenza Vaccine (FLU shot) (#1) 2023 04/02/2013 DTaP,Tdap,and Td Vaccines (7 - Td or [...] Not on filedocumented as of this encounter Advance Directives Latest Code Status [...] and were consensually agreed upon. Care Teams Change Room Attendant Relationship Specialty Start Date End Date Bert Bennett PA-C [address] [facility] [place] [address] PCP - General Physician Residential Green Building Designer 03/08/23 documented as of this encounter
--- OUTSIDE RECORDS SUMMARY | 2023-08-23 06:07 | External Medical Summary ---
Author Name Unknown Address Unknown Organization [id number]:[facility] [place] [address] Laboratory Report Ordering Provider Test Date Status TRENT JENKINS 03/17/2023 09:25:58 Final Based on guidelines from [place] [employer]:
70-99 mg/dL Normal
100-125 mg/dL Pre-diabetes
>125 mg/dL Diabetes, diagnosis requires two abnormal diabetes diagnostic test results Observation Date Value Abnormality Reference (Units ) Status Fasting glucose [Moles/volume] in Serum or Plasma 03/17/2023 09:25:58 94 70-99 (mg/dL) Final Performing Location [facility] [place] [address]
--- OUTSIDE RECORDS SUMMARY | 2023-08-23 06:07 | External Medical Summary ---
Author Name Unknown Address Unknown Organization K09:[facility] [place] [address] Laboratory Report Ordering Provider Test Date Status TRENT JENKINS 03/17/2023 09:25:58 Final Observation Date Value Abnormality Reference (Units ) Status SYNC LEUKOCYTES IN BLOOD BY AUTOMATED COUNT 03/17/2023 09:25:58 7.22 4.00-10.80 (K/uL) Final Segs 03/17/2023 09:25:58 61.9 40.0-75.0 (%) Final Lymphs % 03/17/2023 09:25:58 27.4 18.0-42.0 (%) Final Monos 03/17/2023 09:25:58 8.9 1.0-11.0 (%) Final Eosinophils 03/17/2023 09:25:58 1.5 0.0-6.0 (%) Final Basos 03/17/2023 09:25:58 0.3 0.0-2.0 (%) Final Absolute Segs 03/17/2023 09:25:58 4.47 1.80-7.70 (K/uL) Final Lymphs, absolute 03/17/2023 09:25:58 1.98 1.00-4.80 (K/ul) Final Monos, Abs 03/17/2023 09:25:58 0.64 0.00-1.10 (K/uL) Final Eos, Abs 03/17/2023 09:25:58 0.11 0.00-0.70 (K/uL) Final Basos, Abs 03/17/2023 09:25:58 0.02 0.00-0.20 (K/uL) Final Performing Location [facility] [place] [address]
--- OUTSIDE RECORDS SUMMARY | 2023-08-23 06:07 | External Medical Summary ---
Author Name Unknown Address Unknown Organization K09:[facility] [place] [address] Laboratory Report Ordering Provider Test Date Status TRENT JENKINS 03/17/2023 09:25:58 Final Observation Date Value Abnormality Reference (Units ) Status WBC, Total 03/17/2023 09:25:58 7.22 4.00-10.8 0 (K/uL) Final RBC 03/17/2023 09:25:58 5.78 4.50-5.25 (M/uL) Final Hemoglobin 03/17/2023 09:25:58 16.6 14.0-16.8 (g/dL) Final HCT 03/17/2023 09:25:58 49.6 Above high normal 40 .0-48.4 (%) Final MCV 03/17/2023 09:25:58 85.8 82.0-99.5 (fL) Final MCH 03/17/2023 09:25:58 28.7 27.0-34.0 (pg) Final MCHC 03/17/2023 09:25:58 33.5 32.0-36.0 (g/dL) Final RDW 03/17/2023 09:25:58 14.8 11.5-15.5 (%) Final Platelets 03/17/2023 09:25:58 248 140-400 (K /uL) Final MPV 03/17/2023 09:25:58 10.8 6.6-11.1 ( fL) Final Performing Location [facility] [place] [address]
--- OUTSIDE RECORDS SUMMARY | 2023-08-23 06:07 | External Medical Summary ---
Author Name Unknown Address Unknown Organization K01:[facility] - [address] [facility] [place] [address] Laboratory Report Ordering Provider Test Date Status DANEIL BANGURA 03/17/2023 09:25:58 Final Observation Date Value Abnormality Reference (Units ) Status MYCODE SPECIMEN-SST 03/17/2023 09:25:58 Freezing of extracted DNA, whole blood and/or serum. Final Performing Location [facility] - [address] [place] [address]
--- OUTSIDE RECORDS SUMMARY | 2023-08-23 06:07 | External Medical Summary ---
Author Name Unknown Address Unknown Organization K01:[facility] - [address] [place] [address] Laboratory Report Ordering Provider Test Date Status DANIEL BANGURA 03/17/2023 09:25:58 Final Observation Date Value Abnormality Reference (Units ) Status MYCODE SPECIMEN-LAV 03/17/2023 09:25:58 Freezing of extracted DNA, whole blood and/or serum. Final Performing Location [facility] [address] [facility] [address]
[2023-08-23 06:39] LABS: Hematocrit (blood only) 46.3 % (42.0-52.0); Hemoglobin 15.4 g/dl (14.0-18.0); Mean Corpuscular Hemoglobin 28.9 pg (25.0-34.0); Mean Corpuscular Hgb Conc 33.3 g/dL (32.0-36.0); Mean Platelet Volume 10.6 fL (9.4-12.4); Platelet Count 284 K/uL (130-400); RDW Coefficient of Variation 13.8 % (11.5-14.5); RDW Standard Deviation 44.5 fL (36.4-46.3); Red Blood Count 5.32 M/uL (4.70-6.10); White Blood Count 11.42 K/ul (4.8-10.8)
[2023-08-23 07:08] LABS: Albumin Globulin Ratio 1.4 (0.9-2); Albumin Level 4.1 gm/dl (3.4-5.0); BUN Creatinine Ratio 10.2 (10-20); Bilirubin,Total 0.4 mg/dl (0.2-1.0); Calcium 8.9 mg/dl (8.6-10.3); Creatinine Clr Calc Pharmacy 90.3 ml/min; Est GFR (African American) 82.3 ml/min; Globulin 2.9 gm/dl (2.5-4.0); Magnesium 2.4 mg/dl (1.7-2.4); Phosphorus 3.2 mg/dl (2.5-4.9); Potassium 4.2 mmol/L (3.5-5.1)
[2023-08-23] MEDS ORDERED: cefTRIAXone SODIUM 1,000 MG in DEXTROSE 5 % MINI-B 50 ML IV SCH (08:00)
[2023-08-23] MEDS: VANCOMYCIN HCL 1,250 MG in SODIUM CHLORIDE 0.9% 250 ML IV SCH (08:22)
[2023-08-23] MEDS: CEFEPIME 2,000 MG in SYRINGE 0 ML IV SCH (08:22)
[2023-08-23] MEDS: DOXYCYCLINE HYCLATE 100 MG CAP PO SCH (09:40)
[2023-08-23] MEDS: cefTRIAXone SODIUM 2,000 MG in DEXTROSE 5 % MINI-B 50 ML IV SCH (09:40)
[2023-08-23] MEDS: LORATADINE 10 MG TAB PO SCH (10:33)
--- NOTE | 2023-08-23 12:28 | Hospitalist Progress Note ---
Date of Service August 23, 2023 Assessment & Plan (1) Hematoma of leg: (2) Cellulitis of left leg: (3) Tobacco use: Plan 37-year-old male who presented to the ED with swelling and pain on his left thigh at site of usual IM testosterone injection. Cellulitis of left anterior thigh: Hematoma of left anterior thigh: Lactate negative, procalcitonin negative Vascular ultrasound: Localized complex area at the point of interest measures 5.8 x 1.0 x 2.5 cm, nonspecific but may represent a developing phlegmon versus hematoma. No drainable fluid collection MRSA screen negative Blood culture pending On Cefepime plus vancomycin Antibiotics deescalated to Ceftriaxone and doxycycline Counseled against IM testosterone injections that are unprescribed Tobacco Use: Chronic Vapes Provided cessation counseling Disposition: PCP: Beatrice Clark PA-C CODE STATUS: Full code VTE prophylaxis Lovenox subcu Discontinue tele BP running in 150s/80s Reported he had elevated BP a long time ago but has been normal for a long time and not on any antihypertensives Monitor for now I spent a total of 40 minutes coordinating, documenting and providing care for this patient excluding time spent in performance of separately billed services Admission and Anticipated Discharge Date Admission Date: August 22, 2023 Subjective Patient seen and examined. Reports left thigh pain and swelling. Denies fevers, chills, nausea, vomiting, diarrhea, chest pain, cough, shortness of breath, dysuria, frequency, urgency Reports some sinus congestion from recent URI Physical Exam Constitutional: + well hydrated; no acute distress Eyes: PERRL, conjunctivae normal, anicteric sclerae ENMT: external ear and nose normal, oropharynx normal Respiratory: normal respiratory effort, lungs clear to auscultation Cardiovascular: RRR, no murmur, no edema Gastrointestinal (Abdomen): normal bowel sounds, soft, nontender, no hepatosplenomegaly Musculoskeletal: Left anterior thigh induration, tender, erythema (marked) Neurologic: PERRL, EOMI, accommodation nl, no face palsy, no dysarthria Psychiatric: A+Ox3, euthymic affect Results & Data Results & Data Vital Signs (Past 12 Hours) Vital Signs Temp Pulse Pulse Resp BP Pulse Ox O2 Del Method 08/23/23 11:50 36.3 C L 70 16 150/77 H 95 Room Air 08/23/23 11:09 36.5 C 75 15 162/80 H 96 Room Air 08/23/23 08:39 36.3 C L 83 16 156/74 H 95 Room Air 08/23/23 07:50 Room Air 08/23/23 07:25 75 08/23/23 04:13 36.7 C 88 18 128/78 93 Room Air 08/23/23 01:16 92 H Laboratory Results Abnormal lab results 08/22/23 08/23/23 Range/Units 17:17 05:32 WBC 11.27 H 11.42 H (4.8-10.8) K/ul Neut # (Auto) 8.82 H (1.40-6.50) K/uL [place] # (Auto) 0.80 H (0.11-0.59) K/uL Sodium 135 L (136-145) mmol/L Glucose 101 H (70-99(Fasting)) mg/dl
[2023-08-23] MEDS: ZOLPIDEM TARTRATE 5 MG TAB PO PRN (23:06)
[2023-08-24] MEDS: METOCLOPRAMIDE HCL INJ 5 MG/ML 2 ML VIAL IV ONE (07:18)
[2023-08-24 08:07] LABS: Hematocrit (blood only) 46.4 % (42.0-52.0); Hemoglobin 15.3 g/dl (14.0-18.0); Mean Corpuscular Hemoglobin 29.1 pg (25.0-34.0); Mean Corpuscular Volume 88.2 fL (80.0-100.0); Mean Platelet Volume 10.7 fL (9.4-12.4); Platelet Count 285 K/uL (130-400); RDW Coefficient of Variation 13.9 % (11.5-14.5); RDW Standard Deviation 44.8 fL (36.4-46.3); Red Blood Count 5.26 M/uL (4.70-6.10); White Blood Count 6.99 K/ul (4.8-10.8)
[2023-08-24 08:25] LABS: BUN Creatinine Ratio 12.9 (10-20); Calcium 9.2 mg/dl (8.6-10.3); Creatinine Clr Calc Pharmacy 99.7 ml/min; Est GFR (African American) 92.7 ml/min
--- NOTE | 2023-08-24 12:52 | Hospitalist Progress Note ---
Date of Service August 24, 2023 Assessment & Plan (1) Hematoma of leg: (2) Cellulitis of left leg: (3) Tobacco use: Plan 37-year-old male who presented to the ED with swelling and pain on his left thigh at site of usual IM testosterone injection. Cellulitis of left anterior thigh: Hematoma of left anterior thigh: Lactate negative, procalcitonin negative Vascular ultrasound: Localized complex area at the point of interest measures 5.8 x 1.0 x 2.5 cm, nonspecific but may represent a developing phlegmon versus hematoma. No drainable fluid collection MRSA screen negative Blood culture: No growth to date On Cefepime plus vancomycin--deescalated to Ceftriaxone and doxycycline Counseled against IM testosterone injections that are unprescribed Addition to p.o. antibiotics on discharge Advised to follow-up with PCP in 1 week Tobacco Use: Chronic Vapes Provided cessation counseling Transient elevation of blood pressure BP variable Advised to monitor at home DVT Px: Lovenox SQ CODE STATUS: Full code Admission and Anticipated Discharge Date Admission Date: August 22, 2023 Subjective Patient is seen and examined at bedside Left thigh pain, swelling, erythema much improved Denies any chest pain, dyspnea, nausea, vomiting, abdominal pain No other complaints Review of Systems Review of Systems: All systems reviewed & are unremarkable except as noted in Subjective Physical Exam Physical Exam: Physical Exam: Vitals signs as noted above General Appearance:Moderately built and nourished, no apparent distress Head: normocephalic, Atraumatic Eyes: normal inspection, EOMI Neck: supple, Trachea midline Respiratory/Chest: Normal breath sounds, CTA, No accessory muscle use Cardiovascular: S1, S2, No murmur Abdomen/GI:Soft, Non tender, Bowel sounds present Extremities/Musculoskeletal:normal inspection, no edema, left thigh erythema, swelling much improved, nontender Neurologic/Psych:AAOX3, grossly no focal neurological deficits Skin: normal color, warm, + multiple tattoos Results & Data Results & Data Vital Signs (Past 12 Hours) Vital Signs Temp Pulse Resp BP Pulse Ox O2 Del Method 08/24/23 07:37 36.7 C 69 16 127/71 96 Room Air Laboratory Results Short CBC 08/24/23 Range/Units 07:40 WBC 6.99 (4.8-10.8) K/ul Hgb 15.3 (14.0-18.0) g/dl Hct 46.4 (42.0-52.0) % Plt Count 285 (130-400) K/uL BMP 08/24/23 07:40 Sodium 138 Potassium 5.0 Chloride 106 Carbon Dioxide 28 BUN 15 Creatinine 1.16 Glucose 94 Calcium 9.2
--- NOTE | 2023-08-24 17:30 | Discharge Summary ---
Date of Service August 24, 2023 Admission HPI Per Admitting Provider Mr. Gutierrez is a 37-year-old male who presented to the ED with swelling and pain on his left thigh. Patient states that this past he injected testosterone into his left anterior thigh. This is not the first time that he has used testosterone and is leg and reports no issues prior when he started using testosterone about 4 months ago. Since he noted increased discomfort at his injection site with worsening irritation since Tuesday. Yesterday he exercised and today reports worsening of his symptoms. He reportedly uses a new needle each time he injects and also cleans the site well. No other past medical history noted. Patient reportedly takes glycopyrrolate as needed for diaphoresis related to exercise. Extensive conversation held with patient indicating the negatives regarding nonprescribed medications and concerns regarding such. Mild leukocytosis 11.27; lactate negative LFTs negative, procalcitonin negative and otherwise all drawn labs unremarkable. Patient initially was hypertensive but has normalized. On room air and otherwise hemodynamically stable. Vascular Ultrasound indicates 5.8 X1.0X 2.5 cm questionable phlegmon versus hematoma without drainable fluid. In the ED patient was placed on cefepime plus vancomycin. Patient reportedly vapes, social alcohol with approximately 1 drink per week, no other recreational drug use including medical marijuana. Patient denies headache, dizziness, chest pain, palpitations, shortness of breath, abdominal pain or tenderness, visual or auditory changes, urinary or bowel changes, recent falls or trauma. Patient will be admitted for treatment of left anterior thigh hematoma with IV antibiotics given mild leukocytosis. Will adjust based on blood culture results and MRSA screen. Do not suspect admission more than 1 to 2 days. Please see A/P for further details. Admission Exam Per Admitting Provider Neuro: AAOx4, PERRLA, no aphagia, memory changes, CNII-XII grossly intact HEENT: head normocephalic, moist mucus membranes CV: S1/S2, (-) M/G/R, (-) edema, cap refill < 3 seconds Resp: Lungs CTA in all duenas. On RA GI: Abdomen S/NT/ND, Ax4 bowel sounds, (-) CVA tenderness Musculoskeletal: 5/5 B/L UE strength, 5/5 B/L LE strength. No gait disturbance Skin: (-) rashes , (+) L anterior thigh diffuse erythema Small amount of induration noted anterior aspect of L thigh Psych: euthymic mood Principal Diagnosis Left thigh cellulitis Left thigh hematoma Discharge Data Allergies Allergy/AdvReac Type Severity Reaction Status Date / Time No Known Allergies Allergy Unknown UNKNOWN Unverified 08/22/23 16:40 Consultations 08/22/23 18:43 ED Decision to Admit Stat Procedures Performed Laboratory Results WBC 6.99 K/ul (4.8-10.8) 08/24/23 07:40 RBC 5.26 M/uL (4.70-6.10) 08/24/23 07:40 Hgb 15.3 g/dl (14.0-18.0) 08/24/23 07:40 Hct 46.4 % (42.0-52.0) 08/24/23 07:40 MCV 88.2 fL (80.0-100.0) 08/24/23 07:40 MCH 29.1 pg (25.0-34.0) 08/24/23 07:40 MCHC 33.0 g/dL (32.0-36.0) 08/24/23 07:40 RDW Std Deviation 44.8 fL (36.4-46.3) 08/24/23 07:40 RDW Coeff of Samantha 13.9 % (11.5-14.5) 08/24/23 07:40 Plt Count 285 K/uL (130-400) 08/24/23 07:40 MPV 10.7 fL (9.4-12.4) 08/24/23 07:40 Immature Gran % (Auto) 0.4 % 08/22/23 17:17 Neut % (Auto) 78.2 % 08/22/23 17:17 Lymph % (Auto) 11.6 % 08/22/23 17:17 [place] % (Auto) 7.1 % 08/22/23 17:17 Eos % (Auto) 2.4 % 08/22/23 17:17 Baso % (Auto) 0.3 % 08/22/23 17:17 Neut # (Auto) 8.82 K/uL (1.40-6.50) H 08/22/23 17:17 Lymph # (Auto) 1.31 K/uL (1.20-3.40) 08/22/23 17:17 [place] # (Auto) 0.80 K/uL (0.11-0.59) H 08/22/23 17:17 Eos # (Auto) 0.27 K/uL (0.00-0.50) 08/22/23 17:17 Baso # (Auto) 0.03 K/uL (0.00-0.20) 08/22/23 17:17 Immature Gran # (Auto) 0.04 K/uL (0.01-0.20) 08/22/23 17:17 PT 10.9 Seconds (9.0-12.0) 08/22/23 17:17 INR 1.0 (0.9-1.1) 08/22/23 17:17 APTT 31 Seconds (21-31) 08/22/23 17:17 PTT Ratio 1.1 08/22/23 17:17 Sodium 138 mmol/L (136-145) 08/24/23 07:40 Potassium 5.0 mmol/L (3.5-5.1) 08/24/23 07:40 Chloride 106 mmol/L (98-107) 08/24/23 07:40 Carbon Dioxide 28 mmol/L (21-32) 08/24/23 07:40 Anion Gap 4 (3-11) 08/24/23 07:40 BUN 15 mg/dl (6-23) 08/24/23 07:40 Creatinine 1.16 mg/dl (0.6-1.4) 08/24/23 07:40 Est Cr Clr Drug Dosing 99.7 ml/min 08/24/23 07:40 Est GFR ( Amer) 92.7 ml/min 08/24/23 07:40 Est GFR (Non-Af Amer) 80.0 ml/min 08/24/23 07:40 BUN/Creatinine Ratio 12.9 (10-20) 08/24/23 07:40 Glucose 94 mg/dl (70-99(Fasting)) 08/24/23 07:40 Lactate 0.9 mmol/L (0.4-2.0) 08/22/23 17:17 Calcium 9.2 mg/dl (8.6-10.3) 08/24/23 07:40 Phosphorus 3.2 mg/dl (2.5-4.9) 08/23/23 05:32 Magnesium 2.4 mg/dl (1.7-2.4) 08/23/23 05:32 Total Bilirubin 0.4 mg/dl (0.2-1.0) 08/23/23 05:32 AST 19 U/L (13-39) 08/23/23 05:32 ALT 14 U/L (7-52) 08/23/23 05:32 Alkaline Phosphatase 40 U/L (34-104) 08/23/23 05:32 Total Protein 7.0 gm/dl (6.0-8.3) 08/23/23 05:32 Albumin 4.1 gm/dl (3.4-5.0) 08/23/23 05:32 Globulin 2.9 gm/dl (2.5-4.0) 08/23/23 05:32 Albumin/Globulin Ratio 1.4 (0.9-2) 08/23/23 05:32 Procalcitonin 0.33 ng/ml (0-0.5) 08/22/23 17:17 Nasal Screen MRSA (PCR) Negative (Negative) 08/22/23 20:02 Impressions Vascular Ultrasound 08/22/23 16:59 US extremity non-vascular ltd CLINICAL HISTORY: L anterior leg erythema, edema, at injection site TECHNIQUE: Real-time grayscale sonographic images of the left upper anterior thigh were obtained. Comparison: None available at the time of this dictation. FINDINGS/IMPRESSION: Localized complex area at the point of interest measures 5.8 x 1.0 x 2.5 cm, nonspecific but may represent a developing phlegmon versus hematoma. No drainable fluid collection. ACT 112: Negative or not required by law. Electronically signed by: Josue Tello M.D. 08/22/2023 5:55 PM Ordered Studies 08/22/23 16:59 US extremity non-vascular ltd Stat Hospital Course (1) Hematoma of leg: (2) Cellulitis of left leg: (3) Tobacco use: Plan 37-year-old male who presented to the ED with swelling and pain on his left thigh at site of usual IM testosterone injection. Cellulitis of left anterior thigh: Hematoma of left anterior thigh: Lactate negative, procalcitonin negative Vascular ultrasound: Localized complex area at the point of interest measures 5.8 x 1.0 x 2.5 cm, nonspecific but may represent a developing phlegmon versus hematoma. No drainable fluid collection MRSA screen negative Blood culture: No growth to date On Cefepime plus vancomycin--deescalated to Ceftriaxone and doxycycline Counseled against IM testosterone injections that are unprescribed Addition to p.o. antibiotics on discharge Advised to follow-up with PCP in 1 week Tobacco Use: Chronic Vapes Provided cessation counseling Transient elevation of blood pressure BP variable Advised to monitor at home DVT Px: Lovenox SQ CODE STATUS: Full code Total Time Total Time Spent Total Time Spent (In Minutes): 56 minutes Discharge Plan Discharge Items Patient Disposition: Home - Self-Care Reason For Visit: THIGH HEMATOMA Discharge Diagnosis: Left thigh cellulitis Left thigh hematoma Condition on Discharge: Good Activity: Per Instructions section Exercise/Sports: Wait until after follow-up appointment Non-emergency contact: Primary Care Provider Call non-emergency contact if: you have any medication questions, your symptoms worsen, your pain is concerning for you and you have a fever Follow-up/Referrals: Beatrice Clark PA-C [Primary Care Provider] - (Date & Time 08/29/2023 10:20 AM Provider Beatrice Clark PA-C Department [facility] ) Diet: Regular Addtl Attending Provider Instructions: Follow up with your Primary care physician Beatrice Clark PA-C on 08/29/2023 10:20 AM ---Complete the antibiotic course cefuroxime and doxycycline as prescribed. --Your final blood cultures are pending at the time of discharge. Follow-up with your physician for results. Seek immediate medical attention if your symptoms reoccur or worsen Please take all medications as instructed on discharge list below. Please call if you have any questions or problems. You can reach a [facility] hospitalist on duty at [facility] 24 hours a day by calling [phone] Pending Studies at Discharge: Yes Studies:: Blood culture Stand-Alone Forms: My [facility] Health, Work/School Release, Smoking Cessation Medications and DC Order Prescriptions: New doxycycline hyclate 100 mg Capsule 100 mg PO BID Qty: 16 0RF cefuroxime axetil 500 mg tablet 500 mg PO BID Qty: 16 0RF Discharge Orders: Discharge Order (Routine); Ordered 08/24/23 Ordered By: Lewis Merchant/Other Patient Handouts: ED Cellulitis, ED Hematoma Admission Data Admit Date/Time: 08/22/23 19:01 Attending Provider: Lewis Palacios Admit Provider: Caio Novoa Primary Care Provider: Beatrice Clark Other Providers: Caio Novoa Other Interventions: Discharge Summary Assessment (RN) Last Done: 08/24/23 13:24
== END 2023-08-24 13:51 | disposition home or self-care (01) | DRG 603 ==
LOC: ED 15:42 → EDINP 19:01 → SUATTDRO 19:01 → 2N 21:40 → 3N 08-23 22:21
DX: Z88.3 Allergy status to other anti-infective agents; L03.116 Cellulitis of left lower limb; R03.0 Elevated blood-pressure reading, without diagnosis of hypertension; X58.XXXA Exposure to other specified factors, initial encounter; F17.290 Nicotine dependence, other tobacco product, uncomplicated; S75.992A Other specified injury of unspecified blood vessel at hip and thigh level, left leg, initial encounter; S70.12XA Contusion of left thigh, initial encounter